=== PATIENT | male | born 1970 | race Caucasian/White ===

== ENCOUNTER 2018-09-16 17:32 | Emergency (ER) | payer SELFPAY ==
[~2018-09-16] VITALS: Ht 167.6 cm; Wt 63.0 kg
[2018-09-16 18:27] VITALS: BP 117/79
== END 2018-09-16 21:45 | disposition left against medical advice (07) ==
LOC: ER 17:32
DX: Z53.21 Procedure and treatment not carried out due to patient leaving prior to being seen by health care provider (principal)

== ENCOUNTER 2019-04-27 08:27 | Emergency (ER) | payer OTHER ==
[~2019-04-27] VITALS: Ht 167.6 cm; Wt 61.0 kg
[2019-04-27] MEDS: IBUPROFEN 600MG TABLET PO STA (10:04)
[2019-04-27] MEDS: SODIUM CHLORIDE 0.9% 1,000 ML IV ONE (10:06)
[2019-04-27 10:08] LABS: BASOPHILS % 0.7 % (0.0-2.0); EOSINOPHILS % 2.1 % (0.0-5.0); HEMOGLOBIN. 13.5 g/dL (14.0-18.0); LYMPHOCYTES % 9.6 % (20.0-50.0); MEAN CORPUSCULAR HEMOGLOBIN 30.1 pg (28.0-32.0); MEAN CORPUSCULAR VOLUME 87.1 fL (80.0-94.0); MEAN PLATELET VOLUME 7.8 fl (7.4-10.4); MONOCYTES % 8.2 % (2.0-8.0); NEUTROPHILS % 79.4 % (40.0-76.0); PLATELET 259 x1000/uL (130-400); RED BLOOD CELL COUNT 4.48 mill/uL (4.7-6.1); RED CELL DISTRIBUTION WIDTH 12.9 % (11.6-14.6)
[2019-04-27 10:14] LABS: CHLORIDE 108 mEq/L (98-107)
[2019-04-27 10:55] VITALS: BP 143/97
== END 2019-04-27 11:17 | disposition home or self-care (01) ==
LOC: ER 08:27
DX: J06.9 Acute upper respiratory infection, unspecified (principal); J02.9 Acute pharyngitis, unspecified; R11.2 Nausea with vomiting, unspecified
CPT/HCPCS: 36415; 71045; 80053; 85025; 87804; 96360; 99284; J7030

== ENCOUNTER 2020-02-22 13:48 | Emergency (ER) | payer OTHER ==
[~2020-02-22] VITALS: Ht 167.6 cm; Wt 61.0 kg
[2020-02-22] MEDS ORDERED: KETOROLAC 60MG/2ML VIAL IM ONE (15:00)
[2020-02-22] MEDS ORDERED: HYDROCODONE/ACETAMINOPHEN 5/325MG TABLET PO ONE (19:15)
[2020-02-22] MEDS ORDERED: ONDANSETRON 4MG ODT PO ONE (19:15)
[2020-02-22 19:41] VITALS: BP 131/74
== END 2020-02-22 19:42 | disposition home or self-care (01) ==
LOC: ER 14:23
DX: M54.2 Cervicalgia (principal); M54.6 Pain in thoracic spine; R07.89 Other chest pain; S20.219A Contusion of unspecified front wall of thorax, initial encounter; V89.2XXA Person injured in unspecified motor-vehicle accident, traffic, initial encounter; Y93.89 Activity, other specified; Y92.89 Other specified places as the place of occurrence of the external cause; Y99.8 Other external cause status
CPT/HCPCS: 71250; 72125; 93005; 96372; 99285; J1885; Q0162

== ENCOUNTER 2020-06-01 13:33 | Emergency (ER) | payer MEDICAID ==
[~2020-06-01] VITALS: Ht 165.1 cm; Wt 62.0 kg
[2020-06-01] MEDS ORDERED: IBUPROFEN 400MG TABLET PO ONE (14:15)
[2020-06-01 14:39] VITALS: BP 121/78
== END 2020-06-01 14:40 | disposition home or self-care (01) ==
LOC: ER 13:33
DX: R07.89 Other chest pain (principal); M79.601 Pain in right arm; R03.0 Elevated blood-pressure reading, without diagnosis of hypertension; Z87.828 Personal history of other (healed) physical injury and trauma
CPT/HCPCS: 93005; 99283

== ENCOUNTER 2020-11-03 19:39 | Emergency (ER) | payer SELFPAY ==
[~2020-11-03] VITALS: Ht 165.1 cm; Wt 59.0 kg
[2020-11-03 19:50] VITALS: BP 129/76
[2020-11-03] MEDS ORDERED: ACETAMINOPHEN 325MG TABLET PO ONE (20:00)
[2020-11-03] MEDS ORDERED: ONDANSETRON 4MG ODT PO ONE (20:15)
== END 2020-11-03 21:58 | disposition home or self-care (01) ==
LOC: ER 19:39
DX: R51.9 Headache, unspecified (principal)
CPT/HCPCS: 70450; 99284; Q0162

== ENCOUNTER 2021-01-23 22:37 | Emergency (ER) | payer OTHER ==
[~2021-01-23] VITALS: Ht 167.6 cm; Wt 60.0 kg
[~2021-01-23 22:37] MED LIST: CIPR500T5 MT; DOXY150T9 MT; IBUP-2028 MT
[2021-01-24] MEDS ORDERED: KETOROLAC 30MG/ML VIAL IM ONE (02:15)
[2021-01-24 03:11] LABS: CLARITY URINE CLEAR (CLEAR); COLOR URINE YELLOW (YELLOW); KETONES URINE TRACE (NEGATIVE); LEUKOCYTE ESTERASE URINE NEGATIVE (NEGATIVE); NITRITE URINE NEGATIVE (NEGATIVE); OCCULT BLOOD URINE NEGATIVE (NEGATIVE); PROTEIN URINE NEGATIVE (NEGATIVE); UROBILINOGEN URINE 0.2 E.U./dL (0.2-1.0)
[2021-01-24] MEDS ORDERED: METRONIDAZOLE 500MG TABLET PO ONE (03:45)
[2021-01-24] MEDS ORDERED: AZIT1PAC9 PO (04:38)
[2021-01-24] MEDS ORDERED: IBUP-2029 MT (04:40)
[2021-01-24 04:48] VITALS: BP 136/68
== END 2021-01-24 04:49 | disposition home or self-care (01) ==
LOC: ER 22:37
DX: N45.3 Epididymo-orchitis (principal)
CPT/HCPCS: 76870; 81003; 93976; 96372; 99284; J1885

== ENCOUNTER 2021-02-05 15:21 | Emergency (ER) | payer OTHER ==
[~2021-02-05] VITALS: Ht 157.5 cm; Wt 62.0 kg
[~2021-02-05 15:21] MED LIST changes: +AZIT1PAC9 PO; +IBUP-2029 MT
[2021-02-05] MEDS ORDERED: IBUPROFEN 600MG TABLET PO STA (17:02)
[2021-02-05 17:05] VITALS: BP 131/72
[2021-02-05 17:32] LABS: CLARITY URINE CLEAR (CLEAR); COLOR URINE YELLOW (YELLOW); KETONES URINE NEGATIVE (NEGATIVE); LEUKOCYTE ESTERASE URINE NEGATIVE (NEGATIVE); NITRITE URINE NEGATIVE (NEGATIVE); OCCULT BLOOD URINE NEGATIVE (NEGATIVE); PH URINE 5.5 (4.5-8.0); PROTEIN URINE NEGATIVE (NEGATIVE); SPECIFIC GRAVITY URINE 1.012 (1.005-1.030); UROBILINOGEN URINE 0.2 E.U./dL (0.2-1.0)
== END 2021-02-05 17:49 | disposition home or self-care (01) ==
LOC: ER 15:21
DX: N50.812 Left testicular pain (principal)
CPT/HCPCS: 81003; 99283

== ENCOUNTER 2022-06-06 15:19 | Emergency (ER) | payer OTHER ==
[~2022-06-06] VITALS: Ht 157.5 cm; Wt 70.0 kg
[2022-06-06 15:22] VITALS: BP 128/77
== END 2022-06-06 16:15 | disposition left against medical advice (07) ==
LOC: ER 15:19
DX: Z53.21 Procedure and treatment not carried out due to patient leaving prior to being seen by health care provider (principal)

== ENCOUNTER 2022-07-27 13:21 | Emergency (ER) | payer OTHER ==
[~2022-07-27] VITALS: Ht 162.6 cm; Wt 60.0 kg
[2022-07-27 13:27] VITALS: BP 111/72
[2022-07-27] MEDS ORDERED: AMOX1TAB16 MT (13:34)
== END 2022-07-27 13:40 | disposition home or self-care (01) ==
LOC: ER 13:21
DX: J32.9 Chronic sinusitis, unspecified (principal)
CPT/HCPCS: 99281

== ENCOUNTER 2022-08-04 13:07 | Emergency (ER) | payer OTHER ==
[~2022-08-04] VITALS: Ht 167.6 cm; Wt 75.0 kg
[~2022-08-04 13:07] MED LIST changes: +AMOX1TAB16 MT
[2022-08-04] MEDS ORDERED: NITROGLYCERIN 0.4MG TABLET SL SL PRN (16:30)
[2022-08-04] MEDS ORDERED: ASPIRIN 81MG TABLET PO ONE (16:30)
[2022-08-04] MEDS ORDERED: KETOROLAC 15MG/ML VIAL IV ONE (16:30)
[2022-08-04 16:50] LABS: BASOPHILS % 1.1 % (0.0-2.0); EOSINOPHILS % 5.9 % (0.0-5.0); HEMATOCRIT. 42.7 % (42.0-52.0); HEMOGLOBIN. 14.6 g/dL (14.0-18.0); LYMPHOCYTES % 31.6 % (20.0-50.0); MEAN CORPUSCULAR HEMOGLOBIN 30.1 pg (28.0-32.0); MEAN CORPUSCULAR VOLUME 88.4 fL (80.0-94.0); MEAN PLATELET VOLUME 7.2 fl (7.4-10.4); MONOCYTES % 7.6 % (2.0-8.0); NEUTROPHILS % 53.8 % (40.0-76.0); PLATELET 287 x1000/uL (130-400); RED BLOOD CELL COUNT 4.84 mill/uL (4.7-6.1); RED CELL DISTRIBUTION WIDTH 13.3 % (11.6-14.6)
[2022-08-04 16:54] LABS: CHLORIDE 103 mEq/L (98-107)
[2022-08-04 16:58] VITALS: BP 133/85
[2022-08-05] MEDS ORDERED: IBUP-2030 MT (09:38)
[2022-08-05] MEDS ORDERED: CYCL10TA21 MT (09:38)
== END 2022-08-04 18:35 | disposition home or self-care (01) ==
LOC: ER 13:07
DX: R07.89 Other chest pain (principal); M54.50 Low back pain, unspecified; Z79.899 Other long term (current) drug therapy
CPT/HCPCS: 36415; 71045; 72100; 80053; 83880; 84484; 85025; 93005; 96374; 99285; J1885; Z7610

== ENCOUNTER 2022-08-05 07:01 | Emergency (ER) | payer OTHER ==
[~2022-08-05] VITALS: Ht 167.6 cm; Wt 60.0 kg
[2022-08-05 07:15] VITALS: BP 122/76
[2022-08-05] MEDS ORDERED: IBUP-2030 MT (09:38)
[2022-08-05] MEDS ORDERED: CYCL10TA21 MT (09:38)
== END 2022-08-05 09:45 | disposition home or self-care (01) ==
LOC: ER 07:01
DX: M54.59 Other low back pain (principal)
CPT/HCPCS: 93005; 99283

== ENCOUNTER 2022-11-06 15:55 | Emergency (ER) | payer OTHER ==
[~2022-11-06] VITALS: Ht 167.6 cm; Wt 59.1 kg
[~2022-11-06 15:55] MED LIST changes: +CYCL10TA21 MT; +IBUP-2030 MT
[2022-11-06 18:16] LABS: CLARITY URINE CLEAR (CLEAR); COLOR URINE YELLOW (YELLOW); KETONES URINE NEGATIVE (NEGATIVE); LEUKOCYTE ESTERASE URINE NEGATIVE (NEGATIVE); NITRITE URINE NEGATIVE (NEGATIVE); OCCULT BLOOD URINE NEGATIVE (NEGATIVE); PH URINE 5.5 (4.5-8.0); PROTEIN URINE NEGATIVE (NEGATIVE); SPECIFIC GRAVITY URINE 1.017 (1.005-1.030); UROBILINOGEN URINE 0.2 E.U./dL (0.2-1.0)
[2022-11-06] MEDS ORDERED: IBUP-2029 MT (20:19)
[2022-11-06] MEDS ORDERED: IBUPROFEN 600MG TABLET PO ONE (20:30)
[2022-11-06 20:45] VITALS: BP 130/85
[2022-11-09 04:08] LABS: NEISSERIA GONORRHOEAE NAA Negative (Negative)
== END 2022-11-06 20:46 | disposition home or self-care (01) ==
LOC: ER 15:55
DX: N43.3 Hydrocele, unspecified (principal); Z79.899 Other long term (current) drug therapy
CPT/HCPCS: 76870; 81003; 87491; 87591; 93976; 99284